=== PATIENT | female | born 1955 | race Caucasian/White ===

== ENCOUNTER → 2017-02-10 14:59 | Outpatient (CLI) | payer MEDICARE ==
[2015-09-11 17:21] VITALS: BMI 27.6
[~2017-02-10 14:59] MED LIST: AMBIEN10 MG PO; CARDIZEM120 MG PO; CLARITIN 10 MG10 MG PO; HYDROCODONE-APA1 TAB PO; K-TAB10 MEQ PO; NITROSTAT0.4 MG SL; PEPCID40 MG PO; ROBAXIN-750750 MG PO
== END | disposition home or self-care (01) ==
LOC: D.CT 14:59
DX: R10.12 Left upper quadrant pain (principal)

== ENCOUNTER → 2017-10-02 21:01 | Outpatient (CLI) | payer MEDICARE ==
[2015-09-11 17:21] VITALS: BMI 27.6
== END | disposition home or self-care (01) ==
LOC: D.MAMMO 11:30
DX: Z12.31 Encounter for screening mammogram for malignant neoplasm of breast (principal)

== ENCOUNTER → 2017-11-03 08:05 | Outpatient (CLI) | payer MEDICARE ==
[2015-09-11 17:21] VITALS: BMI 27.6
== END | disposition home or self-care (01) ==
LOC: D.MRI 10-31 10:00
DX: M54.5 Low back pain (principal)

== ENCOUNTER 2018-05-09 06:47 | Emergency (ER) | payer MEDICARE ==
[~2018-05-09] VITALS: Ht 170.2 cm; Wt 82.3 kg
[2018-05-09 06:48] VITALS: Ht 170.2 cm; Wt 82.3 kg
[2018-05-09] MEDS ORDERED: MELATONIN5 MG PO (06:50)
[2018-05-09] MEDS ORDERED: TIROSINT125 MCG PO (06:50)
[2018-05-09] MEDS ORDERED: ZANAFLEX4 MG PO (06:50)
[2018-05-09] MEDS ORDERED: CHLORTHALIDONE50 MG PO (06:51)
[2018-05-09] MEDS ORDERED: TOPROL XL25 MG PO (06:51)
[2018-05-09 07:27] LABS: BASOPHILS 0.2 % (0-2); EOSINOPHILS 0.6 % (0-7); HEMATOCRIT 37.6 % (36.0-48.0); HEMOGLOBIN 13.1 g/dL (12-16); IMMATURE GRANULOCYTES 0.6 % (0-5); LYMPHOCYTES 22.6 % (15-50); MCH 30.9 pg (26.0-34.0); MCHC 34.8 g/dL (31.0-37.0); MCV 88.7 fL (80.0-100.0); MEAN PLATELET VOLUME 9.2 fL (7.4-10.4); MONOCYTES 6.2 % (2-11); NEUTROPHILS 69.8 % (40-80); PLATELET COUNT 270 10x3/uL (130-400); RBC 4.24 10x6/uL (4.00-5.40); RDW 13.5 % (11.5-14.5); WBC 13.3 10x3/uL (4.8-10.8)
[2018-05-09 07:56] LABS: ALBUMIN 3.6 g/dL (3.4-5.0); ALKALINE PHOSPHATASE 54 U/L (46-116); ALT (SGPT) 14 U/L (10-68); BILIRUBIN - TOTAL 0.28 mg/dL (0.2-1.3); CALC OSMOLALITY 275 mosm/kg (275-300); CALCIUM 8.7 mg/dL (8.5-10.1); CARBON DIOXIDE 28.1 mmol/L (21.0-32.0); CHLORIDE - SERUM 102 mmol/L (98-107); CREATININE - SERUM 1.3 mg/dL (0.6-1.3); GLUCOSE 114 mg/dL (74-106); POTASSIUM - SERUM 3.7 mmol/L (3.5-5.1); PROTEIN - SERUM 7.8 g/dL (6.4-8.2); SODIUM 137 mmol/L (136-145); UREA NITROGEN 15 mg/dL (7-18); eGFR NON AFRICAN AMERICAN 44 mL/min (90-120)
[2018-05-09 08:00] LABS: CREATINE KINASE 167 UL (21-215); MAGNESIUM - SERUM 1.8 mg/dL (1.8-2.4)
[2018-05-09 08:03] LABS: TROPONIN-I < 0.017 ng/mL (0.000-0.060)
[2018-05-09 09:13] VITALS: BP 150/72
== END 2018-05-09 09:15 | disposition home or self-care (01) ==
LOC: D.ER 06:47
PROVIDERS: Emergency Medicine
DX: R55 Syncope and collapse (principal); I10 Essential (primary) hypertension; F17.200 Nicotine dependence, unspecified, uncomplicated

== ENCOUNTER → 2018-08-10 12:53 | Outpatient (CLI) | payer MEDICARE ==
[2018-05-09 06:48] VITALS: BMI 28.4
[~2018-08-10 12:53] MED LIST changes: +CHLORTHALIDONE50 MG PO; +MELATONIN5 MG PO; +TIROSINT125 MCG PO; +TOPROL XL25 MG PO; +ZANAFLEX4 MG PO
== END | disposition home or self-care (01) ==
LOC: D.MRI 12:53
DX: M54.5 Low back pain (principal)

== ENCOUNTER 2019-03-04 06:50 | Day surgery (SDC) | payer MEDICARE ==
[2019-03-03 10:26] LABS: BASOPHILS 0.2 % (0-2); EOSINOPHILS 3.3 % (0-7); HEMATOCRIT 39.1 % (36.0-48.0); HEMOGLOBIN 13.6 g/dL (12-16); IMMATURE GRANULOCYTES 0.3 % (0-5); LYMPHOCYTES 40.4 % (15-50); MCH 30.3 pg (26.0-34.0); MCHC 34.8 g/dL (31.0-37.0); MCV 87.1 fL (80.0-100.0); MEAN PLATELET VOLUME 9.4 fL (7.4-10.4); MONOCYTES 6.6 % (2-11); NEUTROPHILS 49.2 % (40-80); PLATELET COUNT 318 10x3/uL (130-400); RBC 4.49 10x6/uL (4.00-5.40); RDW 14.1 % (11.5-14.5); WBC 8.9 10x3/uL (4.8-10.8)
[2019-03-03 11:52] LABS: CALC OSMOLALITY 279 mosm/kg (275-300); CALCIUM 9.1 mg/dL (8.5-10.1); CARBON DIOXIDE 30.2 mmol/L (21.0-32.0); CHLORIDE - SERUM 102 mmol/L (98-107); CREATININE - SERUM 0.8 mg/dL (0.6-1.3); GLUCOSE 96 mg/dL (74-106); POTASSIUM - SERUM 3.7 mmol/L (3.5-5.1); SODIUM 141 mmol/L (136-145); UREA NITROGEN 11 mg/dL (7-18); eGFR NON AFRICAN AMERICAN 76 mL/min (90-120)
[~2019-03-04] VITALS: Ht 170.2 cm; Wt 77.6 kg
[2019-03-04] MEDS ORDERED: ULTRAM50 MG (07:13)
[2019-03-04] MEDS ORDERED: HYDROCODON-ACE1 EA10 PO (07:13)
[2019-03-04 07:17] VITALS: BP 141/80; Ht 170.2 cm; Wt 77.6 kg
[2019-03-04] MEDS ORDERED: ROXICODONE15 MG PO (10:37)
--- NOTE | 2019-03-05 12:15 | OP ---
PATIENT NAME: MARISEL URIBE MEDICAL RECORD: [id number] :51 LOCATION:D.OPS ADMISSION DATE: SURGEON: EMEKA BERKOWITZ MD DATE OF OPERATION: 03/04/2019 PREOPERATIVE DIAGNOSES: 1. Biliary dyskinesia. 2. Hypertension. 3. Chronic obstructive pulmonary disease. 4. Hypercholesterolemia. 5. Gastroesophageal reflux disease. 6. Tobacco dependence syndrome. POSTOPERATIVE DIAGNOSES: 1. Biliary dyskinesia. 2. Hypertension. 3. Chronic obstructive pulmonary disease. 4. Hypercholesterolemia. 5. Gastroesophageal reflux disease. 6. Tobacco dependence syndrome. PROCEDURE: Laparoscopic cholecystectomy. SURGEON: Emeka Berkowitz MD REPORT OF PROCEDURE: The patient's abdomen was prepped and draped in sterile fashion. A cutdown was made on the superior aspect of the umbilicus, 0 Vicryls were placed in the fascia bilaterally and the fascia was incised with 15-blade. I then bluntly entered the peritoneal cavity and placed a 12-mm Medardo port. Under direct visualization, a 5 mm trocar was placed in the epigastrium and 2 more 5-mm trocars were placed in the right subcostal region. The gallbladder was grasped and elevated. The cystic artery and cystic duct were dissected free and these were clipped proximally and distally and ligated in standard fashion. The gallbladder was taken off the liver bed using electrocautery and placed into the right upper quadrant. Any bleeding from the liver bed was then treated with electrocautery. At this point, the ports and insufflation were then removed and the gallbladder was taken out through the umbilicus. The umbilical fascia was closed with interrupted 0 Vicryls times 3. The wounds were then irrigated out with normal saline and infused with 10 mL of 0.25% Marcaine with epinephrine. The skin incisions were all closed with subcutaneous 5-0 Monocryl and dressed appropriately. COMPLICATIONS: None. CONDITION: Stable. ANESTHESIA: General endotracheal and local. BLOOD LOSS: Minimal. TRANSINT:[id number] Voice Confirmation ID: [id number] DOCUMENT ID: [id number] OPERATIVE REPORT [id number] JOJOMARISEL J EMEKA BERKOWITZ MD at 1215 CC: ALINE MASSEY MD [id number] DICTATION DATE: 03/04/19 1040 [employer] WASTE TECHNICIAN: 03/04/19 1054 [facility] 03/04/[address] [facility] [address] [id number]
== END 2019-03-04 12:30 | disposition home or self-care (01) ==
LOC: D.OPS 06:50 → D.PAN 09:00 → D.OPS 09:00
PROVIDERS: ATTEND Surgery
DX: K82.8 Other specified diseases of gallbladder (principal); I10 Essential (primary) hypertension; J44.9 Chronic obstructive pulmonary disease, unspecified; E78.00 Pure hypercholesterolemia, unspecified; K21.9 Gastro-esophageal reflux disease without esophagitis; F17.200 Nicotine dependence, unspecified, uncomplicated; Z01.812 Encounter for preprocedural laboratory examination

== ENCOUNTER 2019-07-22 09:20 | Day surgery (SDC) | payer MEDICARE ==
[2019-07-21 09:32] LABS: CALC OSMOLALITY 279 mosm/kg (275-300); CALCIUM 9.4 mg/dL (8.5-10.1); CARBON DIOXIDE 29.3 mmol/L (21.0-32.0); CHLORIDE - SERUM 103 mmol/L (98-107); CREATININE - SERUM 0.8 mg/dL (0.6-1.3); GLUCOSE 99 mg/dL (74-106); POTASSIUM - SERUM 3.7 mmol/L (3.5-5.1); SODIUM 141 mmol/L (136-145); UREA NITROGEN 9 mg/dL (7-18); eGFR NON AFRICAN AMERICAN 76 mL/min (90-120)
[2019-07-21 09:45] LABS: BASOPHILS 0.4 % (0-2); EOSINOPHILS 1.1 % (0-7); HEMATOCRIT 39.8 % (36.0-48.0); HEMOGLOBIN 13.4 g/dL (12-16); IMMATURE GRANULOCYTES 0.3 % (0-5); LYMPHOCYTES 40.8 % (15-50); MCH 30.1 pg (26.0-34.0); MCHC 33.7 g/dL (31.0-37.0); MCV 89.4 fL (80.0-100.0); MEAN PLATELET VOLUME 8.8 fL (7.4-10.4); MONOCYTES 6.1 % (2-11); NEUTROPHILS 51.3 % (40-80); PLATELET COUNT 351 10x3/uL (130-400); RBC 4.45 10x6/uL (4.00-5.40); RDW 14.4 % (11.5-14.5)
[2019-07-21 09:58] LABS: INR 0.95 (0.85-1.17); PROTIME 12.6 SECONDS (11.6-15.0)
[2019-07-21 10:00] LABS: APTT 30.7 SECONDS (22.8-39.4)
[~2019-07-22] VITALS: Ht 170.2 cm; Wt 75.8 kg
--- NOTE | ~2019-07-22 | OP ---
PATIENT NAME: MARISEL URIBE MEDICAL RECORD: [id number] :51 LOCATION:[facility] ADMISSION DATE: SURGEON: MORGAN SAMS MD DATE OF OPERATION: 07/22/2019 PREOPERATIVE DIAGNOSES: Left L4-L5 far lateral disc herniation, lumbar spinal stenosis and foraminal stenosis of L4-L5, left. PROCEDURE: Morgan Sams MD DESCRIPTION AND TECHNIQUE: After induction of general endotracheal anesthesia, the patient was rolled prone on Servando frame. Lumbar spine was prepped and draped in usual sterile fashion. Fluoroscopic x-ray and spinal needle localized the L4-L5 interspace on the left side. A series of dilators were used to advance a METRx retractor to the L4-L5 interspace on the left, it was confirmed with fluoroscopic x-ray. After infiltration 1:100,000 epinephrine and 1% lidocaine, a stab incision was created with a #11 blade and series of dilators was used to advance a METRx retractor to the L4-L5 interspace on the left side. Level was confirmed with fluoroscopic x-ray. A microscope and Midas Andrade drill were used to perform laminotomy, medial facetectomy and foraminotomy at L4-L5 on the left. Hypertrophied ligamentum flavum was removed with Cloward rongeurs. Following this, the dura was decompressed well. Just ventral to the L5 nerve root, a disc protrusion was within the axilla of the L5 nerve root. This was removed in a piecemeal fashion with pituitary rongeurs. Additional material was removed in the posterior one-third of the disc space. Following this, the L5 nerve root was decompressed well. Meticulous hemostasis was maintained throughout the wound. Wound was irrigated with copious amounts of Ancef irrigant solution. The fascia was closed with 2-0 Vicryl suture, the subdermal layer was closed with 3-0 Vicryl suture. Skin was closed with jaison. A sterile dressing was applied to the wound. The patient was awakened in good condition and taken to recovery. All counts were reported as correct. Estimated blood loss was minimal. TRANSINT:[id number] Voice Confirmation ID: [id number] DOCUMENT ID: [id number] MORGAN SAMS MD CC: [id number] DICTATION DATE: 07/29/19 1150 CORPORATE REPRESENTATIVE: 07/29/19 1254 [facility] 07/22/19 [facility] [address] [place] [address]
[~2019-07-22 09:20] MED LIST changes: +ALENDRONATE SODI5 MG PO; +HYDROCODON-ACE1 EA10 PO; +ROXICODONE15 MG PO; +ULTRAM50 MG
[2019-07-22 09:46] VITALS: BP 122/67; Ht 170.2 cm; Wt 75.8 kg
== END 2019-07-22 15:30 | disposition home or self-care (01) ==
LOC: D.OPS 09:20 → D.PAN 11:30 → D.OPS 11:30
PROVIDERS: Anesthesiology; ATTEND Neurological Surgery
DX: M54.16 Radiculopathy, lumbar region (principal); M53.80 Other specified dorsopathies, site unspecified; M51.26 Other intervertebral disc displacement, lumbar region; M48.061 Spinal stenosis, lumbar region without neurogenic claudication; J44.9 Chronic obstructive pulmonary disease, unspecified; K21.9 Gastro-esophageal reflux disease without esophagitis; Z72.0 Tobacco use; M54.9 Dorsalgia, unspecified; E03.9 Hypothyroidism, unspecified; I10 Essential (primary) hypertension; E78.1 Pure hyperglyceridemia

== ENCOUNTER 2019-10-28 05:25 | Day surgery (SDC) | payer OTHER ==
[2019-10-26 11:38] LABS: BASOPHILS 0.3 % (0-2); EOSINOPHILS 3.1 % (0-7); HEMATOCRIT 39.7 % (36.0-48.0); HEMOGLOBIN 13.1 g/dL (12-16); IMMATURE GRANULOCYTES 0.4 % (0-5); LYMPHOCYTES 48.6 % (15-50); MCH 30.6 pg (26.0-34.0); MCV 92.8 fL (80.0-100.0); MEAN PLATELET VOLUME 9.1 fL (7.4-10.4); MONOCYTES 7.5 % (2-11); NEUTROPHILS 40.1 % (40-80); PLATELET COUNT 341 10x3/uL (130-400); RBC 4.28 10x6/uL (4.00-5.40); RDW 13.9 % (11.5-14.5); WBC 9.5 10x3/uL (4.8-10.8)
[2019-10-26 11:47] LABS: CALC OSMOLALITY 277 mosm/kg (275-300); CARBON DIOXIDE 34.5 mmol/L (21.0-32.0); CHLORIDE - SERUM 102 mmol/L (98-107); CREATININE - SERUM 0.8 mg/dL (0.6-1.3); GLUCOSE 89 mg/dL (74-106); POTASSIUM - SERUM 4.1 mmol/L (3.5-5.1); SODIUM 139 mmol/L (136-145); UREA NITROGEN 14 mg/dL (7-18); eGFR NON AFRICAN AMERICAN 76 mL/min (90-120)
[2019-10-26 11:54] LABS: APTT 32.5 SECONDS (22.8-39.4); INR 0.83 (0.85-1.17); PROTIME 11.4 SECONDS (11.6-15.0)
[~2019-10-28] VITALS: Ht 170.2 cm; Wt 76.2 kg
--- NOTE | ~2019-10-28 | OP ---
PATIENT NAME: MARISEL URIBE MEDICAL RECORD: [id number] :51 LOCATION:D.OPS ADMISSION DATE: SURGEON: MORGAN SAMS MD DATE OF OPERATION: 10/28/2019 PREOPERATIVE DIAGNOSES: Recurrent disc herniation and lumbar spinal stenosis at L3-L4 and L4-L5, left. POSTOPERATIVE DIAGNOSES: Recurrent disc herniation and lumbar spinal stenosis at L3-L4 and L4-L5, left. PROCEDURE: Redo lumbar laminectomy with medial facetectomy and foraminotomy at L3-L4 and L4-L5 on the left. SURGEON: Morgan Sams MD DESCRIPTION OF TECHNIQUE: After induction of general endotracheal anesthesia, the patient was rolled prone on the Servando frame. Lumbar spine was prepped and draped in usual sterile fashion. Fluoroscopic x-ray and spinal needle localized at L3-L4 interspace on the left side. After infiltration of 1:100,000 epinephrine and 1% lidocaine, a stab incision was created with a #11 blade. Series of dilators was used to advance a METRx retractor over the L3-L4 interspace on the left side. Level was confirmed with fluoroscopic x-ray. A microscope and Midas Andrade were used to extend the previous laminotomies laterally superior and inferior at L3-L4 and L4-L5. Scar tissue was removed with Cloward rongeurs at the dura scar interface. Following this, the L3-L4 and L4-L5 disc spaces were identified. These were incised with a #11 blade. Disc material was removed from the posterior one-third of the disc space. Additional disc material was removed from the canal by placing at end of the empty disc space. Following this, L3, L4, and L5 nerve roots were decompressed well. Meticulous hemostasis was maintained throughout the wound. The wound was irrigated with copious amounts of Ancef irrigant solution. The retractor was removed. The fascia was closed with 2-0 Vicryl suture. Subdermal layer was closed with 3-0 Vicryl suture. The skin was closed with jaison. A sterile dressing was applied to the wound. The patient was awakened in good condition and taken to recovery. All counts were reported as correct. Estimated blood loss was minimal. TRANSINT:[id number] Voice Confirmation ID: [id number] DOCUMENT ID: [id number] MORGAN SAMS MD CC: [id number] DICTATION DATE: 12/06/1908 LINE INSTALLATION SUPERVISOR: 12/06/19 1057 [facility] 10/28/19 [id number] [place] [address]
[~2019-10-28 05:25] MED LIST changes: +LYRICA50 MG PO
[2019-10-28 06:04] VITALS: BP 133/66; Ht 170.2 cm; Wt 76.2 kg
[2019-10-28] MEDS ORDERED: PERCOCET 10-321 EAC1 PO (10:01)
--- NOTE | 2019-10-28 13:05 | NUR ---
1210-REMOVED IV WITH CATH INTACT,DISPOSED INTO SHARPS,COVERED SITE WITH GUAZE,SECURED WITH MEDIPORE TAPE.
--- NOTE | 2019-10-28 13:08 | NUR ---
1215-REVIEWED POST OPERATIVE INSTRUCTIONS AND FOLLOW UP APPOINTMENT. VERBALIZED UNDERSTANDING. DRESSING TO BACK CDI. ESCORTED OUT VIA W/C WITH SPOUSE AWAITING TO DRIVE HOME
--- NOTE | 2019-10-28 13:10 | NUR ---
1227-DISCHARGE CRITERIA MET. REVIEWED POST OPERATIVE INSTRUCTIONS AND FOLLOW UP APPOINTMENT. VERBALIZED UNDERSTANDING. DRESSING TO BACK CDI. ESCORTED OUT VIA W/C WITH SPOUSE AWAITING TO DRIVE HOME
== END 2019-10-28 12:27 | disposition home or self-care (01) ==
LOC: D.OPS 05:25 → D.PAN 07:30 → D.OPS 07:30
PROVIDERS: Anesthesiology; ATTEND Neurological Surgery
DX: M51.26 Other intervertebral disc displacement, lumbar region (principal); M48.061 Spinal stenosis, lumbar region without neurogenic claudication; J43.9 Emphysema, unspecified; Z72.0 Tobacco use; K21.9 Gastro-esophageal reflux disease without esophagitis; E03.9 Hypothyroidism, unspecified; I10 Essential (primary) hypertension; M54.16 Radiculopathy, lumbar region; M53.80 Other specified dorsopathies, site unspecified

== ENCOUNTER 2019-12-28 19:30 | Outpatient (CLI) | payer OTHER ==
[2019-10-28 06:04] VITALS: BMI 26.3
[~2019-12-28 19:30] MED LIST changes: +PERCOCET 10-321 EAC1 PO
== END 2019-12-28 23:59 | disposition home or self-care (01) ==
LOC: D.MAMMO 19:30
PROVIDERS: ATTEND Family Medicine Adult Medicine
DX: Z12.31 Encounter for screening mammogram for malignant neoplasm of breast (principal)

== ENCOUNTER 2020-03-11 00:32 | Emergency (ER) | payer OTHER ==
[~2020-03-11] VITALS: Ht 170.2 cm; Wt 74.4 kg
[2020-03-11 00:38] VITALS: Ht 170.2 cm; Wt 74.4 kg
[2020-03-11 00:53] LABS: BASOPHILS 0.2 % (0-2); EOSINOPHILS 0.4 % (0-7); HEMATOCRIT 37.2 % (36.0-48.0); HEMOGLOBIN 12.5 g/dL (12-16); IMMATURE GRANULOCYTES 0.5 % (0-5); LYMPHOCYTES 37.7 % (15-50); MCH 29.4 pg (26.0-34.0); MCHC 33.6 g/dL (31.0-37.0); MCV 87.5 fL (80.0-100.0); NEUTROPHILS 54.2 % (40-80); PLATELET COUNT 317 10x3/uL (130-400); RBC 4.25 10x6/uL (4.00-5.40); RDW 14.4 % (11.5-14.5); WBC 11.3 10x3/uL (4.8-10.8)
[2020-03-11 01:01] LABS: CALC OSMOLALITY 286 mosm/kg (275-300); CARBON DIOXIDE 23.9 mmol/L (21.0-32.0); CHLORIDE - SERUM 105 mmol/L (98-107); CREATININE - SERUM 1.6 mg/dL (0.6-1.3); GLUCOSE 127 mg/dL (74-106); POTASSIUM - SERUM 3.6 mmol/L (3.5-5.1); SODIUM 141 mmol/L (136-145); UREA NITROGEN 25 mg/dL (7-18); eGFR NON AFRICAN AMERICAN 34 mL/min (90-120)
[2020-03-11 01:15] LABS: ALBUMIN 3.6 g/dL (3.4-5.0); ALKALINE PHOSPHATASE 48 U/L (30-120); ALT (SGPT) 19 U/L (10-68); CREATINE KINASE 84 UL (21-215); LIPASE 352 U/L (73-393); MAGNESIUM - SERUM 1.9 mg/dL (1.8-2.4); PRO BNP 208 pg/mL (0-125); PROTEIN - SERUM 7.7 g/dL (6.4-8.2); THYROID STIMULATING HORMONE 5.94 uIU/mL (0.36-3.74); TROPONIN-I < 0.017 ng/mL (0.000-0.060)
[2020-03-11 03:04] VITALS: BP 118/65
== END 2020-03-11 02:40 | disposition home or self-care (01) ==
LOC: D.ER 00:32
PROVIDERS: Family Medicine
DX: I95.9 Hypotension, unspecified (principal); R11.2 Nausea with vomiting, unspecified; R19.7 Diarrhea, unspecified; J44.9 Chronic obstructive pulmonary disease, unspecified; K21.9 Gastro-esophageal reflux disease without esophagitis; Z72.0 Tobacco use; I10 Essential (primary) hypertension

== ENCOUNTER 2021-02-01 14:15 | Outpatient (CLI) | payer OTHER ==
[2020-03-11 00:38] VITALS: BMI 26.3
== END 2021-02-01 23:59 | disposition home or self-care (01) ==
LOC: D.MAMMO 14:15
PROVIDERS: ATTEND Nurse Practitioner Family
DX: Z12.31 Encounter for screening mammogram for malignant neoplasm of breast (principal)